=== PATIENT | male | born 1955 | race American Indian/Alaskan Native ===

== ENCOUNTER 2017-07-06 16:34 | Inpatient (IN) ==
[2017-07-06] MEDS ORDERED: 0.9 % SODIUM CHLORIDE 1,000 ML IV ONE (17:07)
--- NOTE | 2017-07-06 17:15 | Emergency Department Note ---
Seizure HPI - General Chief Complaint: Seizure Stated Complaint: Alcohol/ seizures Time Seen by Provider: 07/06/17 16:38 Source: patient, family Mode of arrival: ambulatory Limitations: altered mental status - History of Present Illness HPI Narrative: 62-year-old male presents with his son and daughter in law due to increased confusion. He has recently stopped drinking alcohol and has had some seizures. He was seen at [facility] on 06/28 and worked up and given Keppra. He saw Nicolás Patel on 07/04 and said that he had not been drinking for a couple of days and Nicolás wanted him to return the next day to monitor him for any withdrawal symptoms. At that time he was told to stop taking his Keppra. Family states that he has not been drinking and he seems like he has been up all night and tore his house apart. He is taking everything out of drawers and his other daughter called [facility] to voice her concern. They instructed him to come here. Family states he has had all of his medications out as well as the Keppra so he may have been taking it. He has not been given Ativan. He has a friend that stays with him that keeps an eye on him. He states he has been hammering all day. He has a few fresh bruises one on his right hand and he has an abrasion on his right posterior ribs. He states he fell in the kitchen. He knows that he is in [place] at [facility]. He does not know the date or the year. He does know that his son and his [id number] are with him. He states his hand is hurting because he has been "hammering "all day. Family states that last year he was having seizures after coming off of alcohol and was very confused for a significant amount of time and then got better. He says that he had alcohol today but family states he did not. Yesterday he was confused but not as bad as today. He is alert. He states he is shaky. He is not agitated or shaking at this time. He is asking for water. His last seizure was on the or when he was seen at [facility]. He takes thiamine and blood pressure medications. He is not diabetic. - Related Data Home Medications Medication Instructions Recorded Confirmed Acetaminophen [Non-Aspirin] 650 mg PO Q6HP PRN 07/06/17 07/06/17 Ergocalciferol (Vitamin D2) 50,000 unit PO ONCE 07/06/17 07/06/17 [Vitamin D2] Folic Acid 1 mg PO ONCE 07/06/17 07/06/17 Gabapentin [Neurontin] 600 mg PO HS 07/06/17 07/06/17 Glucosamine Sulfate 1,000 mg PO BID 07/06/17 07/06/17 Hydrochlorothiazide [Oretic] 25 mg PO DAILY 07/06/17 07/06/17 Iron Polysaccharide Complex 150 mg PO ONCE 07/06/17 07/06/17 [Ferric X-150] Lisinopril [Zestril] 10 mg PO ONCE 07/06/17 07/06/17 Methocarbamol [Robaxin] 500 mg PO ONCE 07/06/17 07/06/17 Omeprazole [PriLOSEC] 20 mg PO ONCE 07/06/17 07/06/17 Thiamine [Vitamin B1] 100 mg PO ONCE 07/06/17 07/06/17 levETIRAcetam [Levetiracetam] 500 mg PO BID 07/06/17 07/06/17 Allergies Allergy/AdvReac Type Severity Reaction Status Date / Time Opioids - Morphine Analogues Allergy Unknown Unknown Verified 07/06/17 16:46 Review of Systems All systems ED: reviewed and negative except as stated. Past Medical History - Past Medical History Medical history: Reports: arthritis, hypertension, other (alcoholism) Surgical history ED: Reports: non-contributory Family history: Reports: non-contributory - Social History smoking status: Never smoker Physical Exam Right posterior ribs shows an abrasion measuring 4 x 3 cm. Associated bruising. His right hand shows a bruise measuring 3 cm in diameter with associated swelling. No deformity and he has full range of motion. He has multiple abrasions on his legs. Limitations: no limitations General appearance: alert, in no apparent distress Head: atraumatic Eye: Present: normal appearance, PERRL, EOMI Neck: Present: normal inspection, full ROM. Absent: tenderness, lymphadenopathy Chest: Present: normal inspection, symmetric chest wall rise Respiratory: Present: normal lung sounds bilaterally Cardiovascular: Present: tachycardia, normal heart sounds Abdominal: Present: soft, normal bowel sounds. Absent: tenderness Neurological: Present: alert, CN II-XII intact. Absent: oriented X3 Psychiatric: Present: flat affect Skin: Present: warm, dry Course Course Narrative: Given fluids and a banana bag has been started. Given 0.5 mg of Ativan. He will be admitted for observation. Vital Signs Temperature 97.5 F 07/06/17 16:36 Pulse Rate 112 H 07/06/17 16:36 Respiratory Rate 16 07/06/17 16:36 Blood Pressure 165/112 07/06/17 16:36 Pulse Oximetry (%) 99 07/06/17 16:36 Temperature 97.5 F 07/06/17 20:37 Pulse Rate 98 H 07/06/17 20:37 Respiratory Rate 25 H 07/06/17 20:37 Blood Pressure 163/95 07/06/17 20:37 Pulse Oximetry (%) 100 07/06/17 20:37 Seizure - Lab Data Lab results reviewed: Yes I reviewed the patient's lab results. Result diagrams: 07/06/17 17:00 07/06/17 17:00 Lab Results 07/06/17 07/06/17 07/06/17 Range/Units 17:00 17:00 17:00 WBC 12.5 H (4.5-11.0) K/mcL RBC 4.27 L (4.50-5.90) M/mcL Hgb 13.8 (13.5-16.5) g/dL Hct 40.5 L (41.0-55.0) % MCV 94.8 (80.0-100.0) fL MCH 32.4 (26.0-34.0) pg MCHC 34.2 (31.0-36.0) g/dL RDW 14.7 H (11.5-14.5) % Plt Count 220 (140-440) K/mcL MPV 8.2 (7.4-10.4) fL Total Counted 100 Seg Neutrophils % 78 (38-78) % Band Neutrophils % Not Reportable Lymphocytes % 6 L (15-49) % Monocytes % (Manual) 16 H (1-12) % Platelet Estimate Normal (NORMAL) RBC Morphology Normal (NORMAL) Sodium 148 H (133-145) mmol/L Potassium 3.8 (3.3-5.1) mmol/L Chloride 111 H (96-108) mmol/L Carbon Dioxide 21 L (22-30) mmol/L Anion Gap 16.0 (8-16) BUN 23 (8-23) mg/dl Creatinine 1.0 (0.7-1.2) mg/dl GFR Calculation 80 Glucose 131 H (70-105) mg/dL Calcium 9.1 (8.6-10.4) mg/dl Total Bilirubin 0.6 (0.0-1.0) mg/dL AST 44 H (0-37) U/l ALT 25 (0-40) U/l Alkaline Phosphatase 108 (39-117) U/L Ammonia (16-60) umol/L Total Protein 7.3 (5.9-8.4) gm/dL Albumin 4.4 (3.2-5.2) gm/dL Globulin 2.9 (2.2-3.7) gm/dL Albumin/Globulin Ratio 1.5 (1.0-2.3) Urine Color Urine Appearance Urine pH (5.0-9.0) Ur Specific [place] (1.000-1.035) Urine Protein (NEG) mg/dL Urine Glucose (UA) (NEG) mg/dL Urine Ketones (NEG) mg/dL Urine Occult Blood (<0.03) mg/dL Urine Nitrate (NEG) Urine Bilirubin (NEG) mg/dL Urine Urobilinogen (NEG) mg/dL Ur Leukocyte Esterase (NEG) /uL Urine RBC (0-1) /hpf Urine WBC (0-4) /hpf Ur Squamous Epith Cells (0-4) /hpf Urine Bacteria (0) /hpf Urine Mucus (0) /hpf Ur Culture Indicated? Urine Opiates Screen None detected (NONDETECTED) Ur Oxycodone Screen None detected (NONDETECTED) Urine Methadone Screen None detected (NONDETECTED) Ur Barbiturates Screen None detected (NONDETECTED) Ur Phencyclidine Scrn None detected (NONDETECTED) Ur Amphetamines Screen None detected (NONDETECTED) U Benzodiazepines Scrn None detected (NONDETECTED) Urine Cocaine Screen None detected (NONDETECTED) U Marijuana (THC) Screen Suspect positive A (NONDETECTED) Ethyl Alcohol (<0.010) gm/dl 07/06/17 07/06/17 07/06/17 Range/Units 17:00 17:18 18:22 WBC (4.5-11.0) K/mcL RBC (4.50-5.90) M/mcL Hgb (13.5-16.5) g/dL Hct (41.0-55.0) % MCV (80.0-100.0) fL MCH (26.0-34.0) pg MCHC (31.0-36.0) g/dL RDW (11.5-14.5) % Plt Count (140-440) K/mcL MPV (7.4-10.4) fL Total Counted Seg Neutrophils % (38-78) % Band Neutrophils % Lymphocytes % (15-49) % Monocytes % (Manual) (1-12) % Platelet Estimate (NORMAL) RBC Morphology (NORMAL) Sodium (133-145) mmol/L Potassium (3.3-5.1) mmol/L Chloride (96-108) mmol/L Carbon Dioxide (22-30) mmol/L Anion Gap (8-16) BUN (8-23) mg/dl Creatinine (0.7-1.2) mg/dl GFR Calculation Glucose (70-105) mg/dL Calcium (8.6-10.4) mg/dl Total Bilirubin (0.0-1.0) mg/dL AST (0-37) U/l ALT (0-40) U/l Alkaline Phosphatase (39-117) U/L Ammonia 30 (16-60) umol/L Total Protein (5.9-8.4) gm/dL Albumin (3.2-5.2) gm/dL Globulin (2.2-3.7) gm/dL Albumin/Globulin Ratio (1.0-2.3) Urine Color Yellow Urine Appearance Clear Urine pH 5.0 (5.0-9.0) Ur Specific [place] 1.024 (1.000-1.035) Urine Protein Neg (NEG) mg/dL Urine Glucose (UA) >=500 A (NEG) mg/dL Urine Ketones 5/tr A (NEG) mg/dL Urine Occult Blood Neg (<0.03) mg/dL Urine Nitrate Neg (NEG) Urine Bilirubin Neg (NEG) mg/dL Urine Urobilinogen Neg (NEG) mg/dL Ur Leukocyte Esterase Neg (NEG) /uL Urine RBC 1 (0-1) /hpf Urine WBC 1 (0-4) /hpf Ur Squamous Epith Cells < 1 (0-4) /hpf Urine Bacteria 0 (0) /hpf Urine Mucus Few (0) /hpf Ur Culture Indicated? No Urine Opiates Screen (NONDETECTED) Ur Oxycodone Screen (NONDETECTED) Urine Methadone Screen (NONDETECTED) Ur Barbiturates Screen (NONDETECTED) Ur Phencyclidine Scrn (NONDETECTED) Ur Amphetamines Screen (NONDETECTED) U Benzodiazepines Scrn (NONDETECTED) Urine Cocaine Screen (NONDETECTED) U Marijuana (THC) Screen (NONDETECTED) Ethyl Alcohol < 0.010 (<0.010) gm/dl - Radiology Data Radiology results reviewed: Yes I reviewed the patient's radiology results. Minimal age-related atrophy - otherwise negative. Negative chest x-ray Disposition Pt seen by FO[employer] AND B[employer] SERVICE MANAGER/PA only: Yes Clinical Impression: Alcohol withdrawal delirium Disposition: Xfer As Outpt/Obs ([facility]) Condition: Fair
--- NOTE | 2017-07-06 17:56 | XRay Report ---
CLINICAL INFORMATION: Altered mental status COMPARISON: 10/17/2016 FINDINGS: Heart size, mediastinum and pulmonary vessels are normal. Lungs are clear. No effusions. Bones soft tissues are normal IMPRESSION: Negative Interpreted and Authenticated by: Clyde Higgins 07/06/17
[2017-07-06 17:58] LABS: Mean Cell Volume 94.8 fL (80.0-100.0); Mean Corpuscular HGB Conc 34.2 g/dL (31.0-36.0); Mean Corpuscular Hemoglobin 32.4 pg (26.0-34.0); Platelet Count 220 K/mcL (140-440); RBC 4.27 M/mcL (4.50-5.90); Red Cell Distribution Width 14.7 % (11.5-14.5)
[2017-07-06 18:06] LABS: ALT/SGPT 25 U/l (0-40); Albumin 4.4 gm/dL (3.2-5.2); Albumin/Globulin Ratio 1.5 (1.0-2.3); Alkaline Phosphatase 108 U/L (39-117); Blood Urea Nitrogen 23 mg/dl (8-23)
--- NOTE | 2017-07-06 18:07 | Cat Scan Report ---
CLINICAL INFORMATION: Decreased mental status decreased combination COMPARISON: None. TECHNIQUE: 2.5 mm helical slices were obtained in the skull base to vertex. Following reconstruction, axial reformatted images were reviewed at bone and parenchymal windows. The exam was performed using radiation dose optimization techniques including, but not limited to, automated exposure control, adjustment of the mA and/or kV according to patient size and use of iterative reconstruction technique. FINDINGS: The ventricles, sulci, fissures, and cisterns are normal in size and configuration for age. No extra-axial fluid collections are identified. The cerebrum, brainstem and cerebellum are unremarkable. There is no evidence of hemorrhage, mass effect, or edema. Bone windows show no osseous abnormality. IMPRESSION: Minimal age-related atrophy - otherwise negative. Interpreted and Authenticated by: Clyde Higgins 07/06/17
[2017-07-06 18:41] LABS: Lymphocytes % 6 % (15-49); Monocytes % (Manual) 16 % (1-12); Platelet Estimate NORMAL (NORMAL); RBC Morphology NORMAL (NORMAL); Segmented Neutrophils % 78 % (38-78)
[2017-07-06] MEDS ORDERED: LACTATED RINGERS 1,000 ML IV ONE (18:57)
[2017-07-06] MEDS ORDERED: LORazepam 2 MG/ML VIAL IV ONE (19:04)
[2017-07-06 19:11] LABS: Appearance,Urine CLEAR; Bacteria,Urine 0 /hpf (0); Bilirubin,Urine NEG (NEG); Color,Urine YELLOW; Glucose,Urine (UA) >=500 mg/dL (NEG); Leukocyte Esterase,Urine NEG /uL (NEG); Mucus,Urine FEW /hpf (0); Protein,Urine NEG (NEG); Specific Gravity,Urine 1.024 (1.000-1.035); Urine Blood NEG mg/dL (<0.03); Urine RBC 1 /hpf (0-1); Urine Squamous Epithelial Cell < 1 /hpf (0-4); Urine WBC 1 /hpf (0-4); Urobilinogen,Urine NEG (NEG)
[2017-07-06] MEDS ORDERED: POTASSIUM CHLORIDE 20 MEQ, MAGNESIUM SULFATE 16.24 MEQ, THIAMINE 100 MG, MVI, ADULT NO.... IV SCH ×2 (19:30→19:45)
[2017-07-06 19:48] LABS: Amphetamine Screen,Urine NONE DETECTED (NONDETECTED); Benzodiazepines Screen,Urine NONE DETECTED (NONDETECTED); Cocaine Screen,Urine NONE DETECTED (NONDETECTED); Opiate Screen,Urine NONE DETECTED (NONDETECTED); Oxycodone, Urine Screen NONE DETECTED (NONDETECTED)
[2017-07-06] MEDS ORDERED: POTASSIUM CHLORIDE 20 MEQ, MAGNESIUM SULFATE 16.24 MEQ, THIAMINE 100 MG, MVI, ADULT NO.... IV ONE (19:53)
[2017-07-06] MEDS ORDERED: LISINOPRIL 10 MG TABLET PO SCH (20:53)
[2017-07-06] MEDS ORDERED: cloNIDine HCL 0.1 MG TABLET PO PRN (20:53)
[2017-07-06] MEDS ORDERED: IRON POLYSACCHARIDE COMPLEX 150 MG CAPSULE PO SCH (20:53)
[2017-07-06] MEDS ORDERED: ONDANSETRON 4 MG/2 ML VIAL IV PRN (20:53)
[2017-07-06] MEDS ORDERED: OMEPRAZOLE 20 MG CAPSULE PO SCH (20:53)
--- NOTE | 2017-07-06 20:56 | Internal Med History&Physical ---
Medical - H&P: HPI Patient information: Note initiated : 07/06/17 at 8:48 pm Service Date, if different from initiated Date: [] Patient: Rodney Belcher 62 y/o M admitted on for Alcohol/ seizures. Chief Complaint: [] History of present illness: Mr. Belcher is a 62 year old Male with alcohol use, presents to the emergency room today brought in with family members for evaluation for altered mental status. The patient is not a very reliable history provider however is able to answer some questions. According to him he was brought in here for seizures. He has been having seizures for approximately 2 weeks. The patient notes he was brougth to the hospital for same He note he has been a very heavy user of alcohol, drinks crate after crate of beer, with whiskey shots later, h/o etoh widrawal seizures. he also uses Kratom on a regular basis, which he uses to get a high, On reviewing this substance its a a herb used for chr pain, but also used as a recreational use. The patient also uses THC. The patient at present has no complaints, he is pleasant, but not able to answer questions correctly, Family was present at the bedside in the ER but they stepped out at the time of admission, and have not yet returned. I do have charts from outside faciilty which was reviewed. The patient was admitted to [facility] on 19 June with diagnosis of alcohol withdrawal seizures. The patient was started on Keppra at that point in time. He underwent testing CT head CT spine chest x-ray which is all negative. Urine tox screen was positive for THC, labs showed leukocytosis. He was sent home with follow-up to his PCP as he was coherent and able to hold a meaningful conversation. He was seen by the PCPs office on 04 July advised not to take Keppra, he was also not having any seizures. He was educated to abstain from alcohol, he was prescribed I believe multivitamin thiamine and folic acid at that point in time. According to the note telephonic note from today the PCPs office received a phone from the patient's sister concerned that the patient was acting bizarrely extremely forgetful and not quite right his body was bruised and there was some sores on his tongue. He was not able to recognize his family members. Medications were lying around his house not sure if he was compliant with same. He was therefore asked to go to the emergency room for further evaluation. In the emergency room she was noted to be afebrile, tachycardic heart rate 90 - 110, elevated blood pressure, labs showed mild leukocytosis WBC 12,000 much better than a few days ago. Sodium was elevated at 148, potassium is 3.8, glucose is 138. She was obviously confused. Head CT was negative chest x-ray was negative. Patient was therefore presented for admission for alcohol withdrawal and possible delirium tremors. Cording to the patient his last alcohol drink was yesterday or today he was not sure, he also used this herbal supplement for recreational purposes recently unable to give me a proper timeframe. Side effects of Kratom as per Uptodate : Kratom use can also lead to respiratory depression, anorexia, depression, psychosis, and seizures Review of systems: CONSTITUTIONAL: No weight loss, fever, chills, weakness or fatigue. HEENT: Eyes: No visual loss, blurred vision, double vision or yellow sclerae. Ears, Nose, Throat: No hearing loss, sneezing, congestion, runny nose or sore throat. SKIN: No rash or itching. CARDIOVASCULAR: No chest pain, chest pressure or chest discomfort. No palpitations or edema. RESPIRATORY: No shortness of breath, cough or sputum. GASTROINTESTINAL: No nausea, vomiting or diarrhea or constipation. No abdominal pain or blood in stools No Betty. GENITOURINARY: Denies Burning on urination. Blood in urine, or foul smelling urine NEUROLOGICAL: No headache, dizziness, syncope, paralysis, tremors, numbness or tingling in the extremities. No change in bowel or bladder control. MUSCULOSKELETAL: No muscle, back pain, joint pain or stiffness. HEMATOLOGIC: No bleeding or bruising. No enlarged nodes PSYCHIATRIC: No depression or anxiety. ENDOCRINOLOGIC: No reports of sweating, cold or heat intolerance. No polyuria or polydipsia. ALLERGIES: No hives, eczema or rhinitis. Skin: No rash, no jaundice, cyanosis or pallor. Patient denies any complaint Medical - H&P: PMH Medical history: Glaucoma Hypertension Seizures secondary to substance use versus epilepsy Chronic back pain Multiple fractures Surgical history: None as per chart review Pertinent family history: Mother at age 86, due to her myocardial infarction Social history: Heavy alcohol use, marijuana use, use of kratom, as per chart no history of smoking Medical - H&P: Meds Home Medications Medication Instructions Recorded Confirmed Type Acetaminophen [Non-Aspirin] 650 mg PO Q6HP PRN 07/06/17 07/06/17 History Ergocalciferol (Vitamin D2) 50,000 unit PO ONCE 07/06/17 07/06/17 History [Vitamin D2] Folic Acid 1 mg PO ONCE 07/06/17 07/06/17 History Gabapentin [Neurontin] 600 mg PO HS 07/06/17 07/06/17 History Glucosamine Sulfate 1,000 mg PO BID 07/06/17 07/06/17 History Hydrochlorothiazide [Oretic] 25 mg PO DAILY 07/06/17 07/06/17 History Iron Polysaccharide Complex 150 mg PO ONCE 07/06/17 07/06/17 History [Ferric X-150] Lisinopril [Zestril] 10 mg PO ONCE 07/06/17 07/06/17 History Methocarbamol [Robaxin] 500 mg PO ONCE 07/06/17 07/06/17 History Omeprazole [PriLOSEC] 20 mg PO ONCE 07/06/17 07/06/17 History Thiamine [Vitamin B1] 100 mg PO ONCE 07/06/17 07/06/17 History levETIRAcetam [Levetiracetam] 500 mg PO BID 07/06/17 07/06/17 History Allergies Allergy/AdvReac Type Severity Reaction Status Date / Time Opioids - Morphine Analogues Allergy Unknown Unknown Verified 07/06/17 16:46 Medical - H&P: Exam - Constitutional Vitals: Temp Pulse Resp BP Pulse Ox 97.5 F 98 H 25 H 163/95 100 07/06/17 20:37 07/06/17 20:37 07/06/17 20:37 07/06/17 20:37 07/06/17 20:37 Exam: GENERAL: The patient is a well-developed, well-nourished in no apparent distress. Is alert and oriented x2 (aware of name, date of bright and that we are in [facility]. not sure of month, year or the president. VITAL SIGNS: Reviewed and as noted elsewhere. HEENT: Head is normocephalic and atraumatic. Extraocular muscles are intact. Pupils 2 mm in the right eye reactive to light, 4 mm in the left side status post cataract surgery not reactive to light. Patient denied any visual symptoms. Nares appeared normal. Mouth appears any without lesions. Mucous membranes are dry. There is a tongue bite not actively bleeding NECK: Normal to inspection, Supple, No lymphadenopathy or thyromegaly. LUNGS: Air entry equal on both sides, no wheezing, crackles or rhonchi noted. No accessory muscles of respiration HEART: Regular rate and rhythm normal, S1 and S2 heard, no Gallop, S3 or Rub Noted, No Gross murmur heard. ABDOMEN: Soft, nontender, and nondistended. Positive bowel sounds. No hepatosplenomegaly was noted. EXTREMITIES: No cyanosis, clubbing, rash, lesions or edema. NEUROLOGIC: Cranial nerves II through XII are grossly intact. Motor and Sensory System Grossly Intact PSYCHIATRIC: Pleasant, laughing inappropriately intermittently. Confused. But follows commands SKIN: No ulceration or wounds noted, No jaundice, No rash noted. Bruising noted on his hands and some abrasion on his foot Medical - H&P: Reslt - Labs CBC & Chem 7: 07/06/17 17:00 07/06/17 17:00 Labs: Short CBC 07/06/17 Range/Units 17:00 WBC 12.5 H (4.5-11.0) K/mcL Hgb 13.8 (13.5-16.5) g/dL Hct 40.5 L (41.0-55.0) % Plt Count 220 (140-440) K/mcL BMP 07/06/17 17:00 Sodium 148 H Potassium 3.8 Chloride 111 H Carbon Dioxide 21 L BUN 23 Creatinine 1.0 Glucose 131 H Calcium 9.1 Liver Function 07/06/17 Range/Units 17:00 Total Bilirubin 0.6 (0.0-1.0) mg/dL AST 44 H (0-37) U/l ALT 25 (0-40) U/l Alkaline Phosphatase 108 (39-117) U/L Albumin 4.4 (3.2-5.2) gm/dL Urine 07/06/17 Range/Units 18:22 Urine Color Yellow Urine Appearance Clear Urine pH 5.0 (5.0-9.0) Ur Specific [place] 1.024 (1.000-1.035) Urine Protein Neg (NEG) mg/dL Urine Glucose (UA) >=500 A (NEG) mg/dL Medical - H&P: A/P - Narrative A/P Narrative: A/P Alcohol Withdrawal Delirium Tremors Alcohol withdrawal Seizures Substance abuse/ Kratom Hypertension, uncontrolled Chr pain Glaucoma Plan Admit to tele [facility] protocol, IV ativan as needed per protocol, hold Keppra for now, according to PCPs review. If seizures are related to alcohol withdrawal that they should subside. Patient's going to be on Ativan. Banana bag given in the ED, continue IV thiamine while in the hospital. Continue folic acid and multivitamin Clonidine for very high blood pressure, resume home medications IV dextrose half normal saline with KCl. Trend labs Seizure and fall precautions Resume home medications for glaucoma Try to get some history from family once they come back [ was told them to come back later.] DVT-heparin subcu Regular diet Full code
[2017-07-06] MEDS ORDERED: levETIRAcetam 500 MG TABLET PO SCH (21:00)
[2017-07-06] MEDS ORDERED: LISINOPRIL 10 MG TABLET ONE (21:44)
[2017-07-06] MEDS ORDERED: cloNIDine HCL 0.1 MG TABLET ONE (21:44)
[2017-07-06] MEDS ORDERED: GABAPENTIN 300 MG CAPSULE ONE (21:44)
[2017-07-06] MEDS ORDERED: HEPARIN 5,000 UNIT/ML VIAL ONE (21:45)
[2017-07-06] MEDS: HEPARIN 5,000 UNIT/ML VIAL SQ SCH (21:58)
[2017-07-06] MEDS: GABAPENTIN 300 MG CAPSULE PO SCH (22:00)
[2017-07-06] MEDS: 0.9 % SODIUM CHLORIDE 10 ML SYRINGE IV SCH (22:01)
[2017-07-07] MEDS: DEXTROSE 5%-1/2NS W/20MEQ KCL 1,000 ML IV SCH ×3 (00:15→21:00)
[2017-07-07 05:50] LABS: Basophils # (Auto) 0.1 K/mcL (0.0-0.3); Basophils % (Auto) 0.5 % (0.0-2.0); Eosinophils # (Auto) 0.5 K/mcL (0.0-0.7); Eosinophils % (Auto) 4.1 % (0.0-7.0); Granulocytes % (Auto) 62.9 % (38.0-78.0); Lymphocytes # (Auto) 2.9 K/mcL (1.5-4.8); Mean Cell Volume 95.9 fL (80.0-100.0); Mean Corpuscular HGB Conc 34.1 g/dL (31.0-36.0); Mean Corpuscular Hemoglobin 32.7 pg (26.0-34.0); Monocytes % (Auto) 8.5 % (1.0-12.0); Platelet Count 195 K/mcL (140-440); RBC 3.54 M/mcL (4.50-5.90); Red Cell Distribution Width 14.8 % (11.5-14.5)
[2017-07-07 06:11] LABS: ALT/SGPT 20 U/l (0-40); Albumin 3.2 gm/dL (3.2-5.2); Albumin/Globulin Ratio 1.4 (1.0-2.3); Alkaline Phosphatase 82 U/L (39-117); Bilirubin,Direct < 0.2 mg/dL (0.0-0.3); Blood Urea Nitrogen 11 mg/dl (8-23); Gamma Glutamyl Transpeptidase 305 U/L (8-61); Uric Acid 4.2 mg/dL (2.5-8.0)
[2017-07-07] MEDS: 0.9 % SODIUM CHLORIDE 10 ML SYRINGE IV SCH ×3 (06:36→21:08)
[2017-07-07] MEDS: HEPARIN 5,000 UNIT/ML VIAL SQ SCH ×2 (08:58→21:07)
[2017-07-07] MEDS: THIAMINE 100 MG in 0.9 % SODIUM CHLORIDE 50 ML IV SCH (08:58)
[2017-07-07] MEDS: FOLIC ACID 1 MG TABLET PO SCH (08:59)
[2017-07-07] MEDS: HYDROCHLOROTHIAZIDE 25 MG TABLET PO SCH (08:59)
[2017-07-07] MEDS: LISINOPRIL 10 MG TABLET PO SCH (08:59)
[2017-07-07] MEDS: IRON POLYSACCHARIDE COMPLEX 150 MG CAPSULE PO SCH (08:59)
[2017-07-07] MEDS: MULTIVIT,THER IRON,CA,FA & MIN 1 TABLET PO SCH (08:59)
[2017-07-07] MEDS: OMEPRAZOLE 20 MG CAPSULE PO SCH (09:03)
--- NOTE | 2017-07-07 09:33 | Internal Med Progress Note ---
Medical - PN: Subj Patient information: Note initiated : 07/07/17 at 9:31 am Service Date, if different from initiated Date: [] Patient: Rodney Belcher 62 y/o M admitted on 07/06/17 for Alcohol/ seizures. Chief Complaint: [] Interval history: Mr. Belcher is a 62 year old Male with alcohol use, presents to the emergency room today brought in with family members for evaluation for altered mental status. The patient is not a very reliable history provider however is able to answer some questions. According to him he was brought in here for seizures. He has been having seizures for approximately 2 weeks. The patient notes he was brougth to the hospital for same He note he has been a very heavy user of alcohol, drinks crate after crate of beer, with whiskey shots later, h/o etoh widrawal seizures. he also uses Kratom on a regular basis, which he uses to get a high, On reviewing this substance its a a herb used for chr pain, but also used as a recreational use. The patient also uses THC. The patient at present has no complaints, he is pleasant, but not able to answer questions correctly, Family was present at the bedside in the ER but they stepped out at the time of admission, and have not yet returned. I do have charts from outside faciilty which was reviewed. The patient was admitted to [facility] on 19 June with diagnosis of alcohol withdrawal seizures. The patient was started on Keppra at that point in time. He underwent testing CT head CT spine chest x-ray which is all negative. Urine tox screen was positive for THC, labs showed leukocytosis. He was sent home with follow-up to his PCP as he was coherent and able to hold a meaningful conversation. He was seen by the PCPs office on 04 July advised not to take Keppra, he was also not having any seizures. He was educated to abstain from alcohol, he was prescribed I believe multivitamin thiamine and folic acid at that point in time. According to the note telephonic note from today the PCPs office received a phone from the patient's sister concerned that the patient was acting bizarrely extremely forgetful and not quite right his body was bruised and there was some sores on his tongue. He was not able to recognize his family members. Medications were lying around his house not sure if he was compliant with same. He was therefore asked to go to the emergency room for further evaluation. In the emergency room she was noted to be afebrile, tachycardic heart rate 90 - 110, elevated blood pressure, labs showed mild leukocytosis WBC 12,000 much better than a few days ago. Sodium was elevated at 148, potassium is 3.8, glucose is 138. She was obviously confused. Head CT was negative chest x-ray was negative. Patient was therefore presented for admission for alcohol withdrawal and possible delirium tremors. Cording to the patient his last alcohol drink was yesterday or today he was not sure, he also used this herbal supplement for recreational purposes recently unable to give me a proper timeframe. Side effects of Kratom as per Uptodate : Kratom use can also lead to respiratory depression, anorexia, depression, psychosis, and seizures 07/07 Patient seen and examined, no acute overnight events, patient blood pressure was high yesterday but is much better controlled today. Heart rate now much better controlled. Drops down when he is sleeping. We will discontinue clonidine and use hydralazine as needed for blood pressure. Patient was sitting in his bed comfortable had no complaints. Was able to provide a much better history today noting that he was drinking a case of beer on a daily basis, sometimes whiskey shots along with them. Using kratom 1 large spoon every 2 hours. His last alcoholic drink was yesterday. I believe it was a short of whiskey the patient is still not back to baseline still has some tangential thoughts. No seizures overnight Pertinent ROS: Denies headache, dizziness Denies chest pain, palpitations Denies cough or shortness of breath Denies abdominal pain, nausea or vomiting. - Constitutional Vitals: Vital Signs Temp Pulse Resp BP Pulse Ox 97.8 F 76 16 134/95 98 07/07/17 08:15 07/07/17 08:15 07/07/17 08:15 07/07/17 08:15 07/07/17 08:15 Period Temp Pulse Resp BP Sys/Shoemaker Pulse Ox Last 24 Hr 97.5 F-98.8 F 48-114 16-25 109-181/71-122 97-100 Intake and Output 07/06/17 07/07/17 07/07/17 21:59 05:59 13:59 Intake Total 2125 / 2125 1200 / 1200 1000 / 1000 Output Total 1000 / 1000 1100 / 1100 Balance 1125 / 1125 100 / 100 1000 / 1000 Weight 152 lb 12.8 oz Intake & Output: Intake & Output 07/06/17 07/07/17 07/07/17 21:59 05:59 13:59 Intake Total 5 / 5 1200 / 1200 1000 / 1000 Output Total 1000 / 1000 1100 / 1100 Balance 1125 / 1125 100 / 100 1000 / 1000 Weight 152 lb 12.8 oz Intake: IV 5 / 2125 900 / 900 1000 / 1000 Sodium Chloride 0.9% 1,000 ml @ 1000 / 1000 Wide Open IV BOLUS ONE Rx#: [id number] Dextrose 5%-1/2Ns W/20Meq KCl 1 1000 / 1000 ,000 ml @ 100 mls/hr IV .Q10H VITALIY Rx#:[id number] Lactated Ringers 1,000 ml @ 1000 / 1000 Wide Open IV BOLUS ONE Rx#: [id number] Potassium Chloride 20 Meq 125 / 125 900 / 900 Magnesium Sulfate 16.24 Meq Vitamin B1 100 mg Infuvite Adult 10 ml In Dextrose 5%-1/ 2Ns W/20Meq KCl 1,000 ml @ 250 mls/hr IV .Q4H6M ONE Rx#: [id number] Oral 300 / 300 Output: Void Amount 1000 / 1000 1100 / 1100 Other: Meal snack Percent of Meal Consumed 100% Feeding Ability Assist with Tray Set Up # Bowel Movements 0 Exam: Constitutional; Afebrile, cooperative, alert, not in distress. Eyes- No icterus, , No periorbital swelling Ears- Ext ear normal, hearing normal to conversation. Neck- Midline trachea, supple Respiratory system: Air Entry equal on both sides, No crackles or wheezing, no rhonchi. CVS- Rate rhythm regular, S1,S2 heard, no gallop, no rub. 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 Medical - PN: Obj Da - Labs CBC & Chem 7: 07/07/17 03:40 07/07/17 03:40 Labs: Abnormal Lab Results 07/07/17 07/07/17 07/06/17 03:40 03:40 18:22 WBC 11.9 H RBC 3.54 L Hgb 11.6 L Hct 33.9 L RDW 14.8 H Stafford # (Auto) 1.0 H Lymphocytes % Monocytes % (Manual) Sodium Chloride 110 H Carbon Dioxide 21 L Glucose 108 H Calcium 7.8 L GGT 305 H AST Total Protein 5.5 L Urine Glucose (UA) >=500 A Urine Ketones 5/tr A U Marijuana (THC) Screen 07/06/17 07/06/17 07/06/17 17:00 17:00 17:00 WBC 12.5 H RBC 4.27 L Hgb Hct 40.5 L RDW 14.7 H Stafford # (Auto) Lymphocytes % 6 L Monocytes % (Manual) 16 H Sodium 148 H Chloride 111 H Carbon Dioxide 21 L Glucose 131 H Calcium GGT AST 44 H Total Protein Urine Glucose (UA) Urine Ketones U Marijuana (THC) Screen Suspect positive A Meds: Medications Clonidine HCl (Catapres) 0.1 mg PO Q2HP PRN PRN Reason: Hypertension Last Admin: 07/07/17 00:21 Dose: 0.1 mg Folic Acid (Folic Acid) 1 mg PO DAILY [facility] Last Admin: 07/07/17 08:59 Dose: 1 mg Gabapentin (Neurontin) 600 mg PO HS [facility] Last Admin: 07/06/17 22:00 Dose: Not Given Heparin Sodium (Porcine) (Heparin) 5,000 unit SQ Q12 [facility] Last Admin: 07/07/17 08:58 Dose: 5,000 unit Hydrochlorothiazide (Oretic) 25 mg PO DAILY [facility] Last Admin: 07/07/17 08:59 Dose: 25 mg Thiamine HCl 100 mg/ Sodium (Chloride) 51 mls @ 50 mls/hr IV DAILY [facility] Last Admin: 07/07/17 08:58 Dose: 50 mls/hr Potassium Chloride/Dextrose/Sod Cl (Dextrose 5%-1/2ns W/20meq Kcl) 1,000 mls @ 100 mls/hr IV .Q10H [facility] Stop: 07/08/17 12:52 Last Admin: 07/07/17 08:59 Dose: 100 mls/hr Iron Carb/Multivit/Certified Mortician/Folic Acid (Multivitamin W/Minerals) 1 tab PO DAILY [facility] Last Admin: 07/07/17 08:59 Dose: 1 tab Lisinopril (Zestril) 10 mg PO DAILY [facility] Last Admin: 07/07/17 08:59 Dose: 10 mg Lorazepam (Ativan) 0 mg IV Q4HP PRN; Protocol PRN Reason: Alcohol Withdrawal Omeprazole (Prilosec) 20 mg PO ACB [facility] Last Admin: 07/07/17 09:03 Dose: 20 mg Ondansetron HCl (Zofran) 4 mg IV Q4HP PRN PRN Reason: Nausea And Vomiting Polysaccharide Iron Complex (Ferrex 150) 150 mg PO DAILY [facility] Last Admin: 07/07/17 08:59 Dose: 150 mg Sodium Chloride (Saline Flush) 10 ml IV Q8 [facility] Last Admin: 07/07/17 06:36 Dose: Not Given Medical - PN: A/P - Time Spent With Patient Total time spent is greater than 50% in coordination of care (as documented) at patient's floor/unit and/or counseling patient: - Narrative A/P Narrative: A/P Alcohol Withdrawal/ Delirium Tremors: CIWA scores low now, pt doing better, Continue to monitor closely, continue thiamine multivitamin and folic acid. Continue hydration Alcohol withdrawal Seizures: Seizures could also be related to use of kratom which can induce seizures if used in high doses. Seizure precautions, Ativan as needed. She does not have history of epilepsy and therefore will avoid using anti-antiepileptic medication at this point. Substance abuse/ Kratom : Educated at length need for cessation, patient notes that he has grown up since the age of 12 using substances. Was inquiring with regards to use of other substances like marijuana opiates meth or cocaine if that were okay. Educated that none of the substances are acceptable. It seems that the patient will still continue to use marijuana to get his daily high. Hypertension, uncontrolled: Resume hydrochlorothiazide and lisinopril, discontinue clonidine. Low blood heart rate during sleep likely physiological monitor. DVT-heparin subcu Regular diet Full code If remains stable will xfer to med surg status today Medical - PN: Qual - VTE Deep Vein Thrombosis/Pulmonary Embolism Present on Admission: No
[2017-07-07] MEDS ORDERED: hydrALAZINE 20 MG/ML VIAL IV PRN (17:44)
[2017-07-07] MEDS ORDERED: ACETAMINOPHEN 325 MG TABLET PO PRN (17:45)
[2017-07-07] MEDS: LORazepam 2 MG/ML VIAL IV PRN ×2 (18:59→22:12)
[2017-07-07] MEDS: GABAPENTIN 300 MG CAPSULE PO SCH (21:08)
[2017-07-08 04:40] LABS: Basophils # (Auto) 0 K/mcL (0.0-0.3); Basophils % (Auto) 0.4 % (0.0-2.0); Eosinophils # (Auto) 0.4 K/mcL (0.0-0.7); Eosinophils % (Auto) 3.5 % (0.0-7.0); Granulocytes % (Auto) 60.8 % (38.0-78.0); Lymphocytes # (Auto) 2.8 K/mcL (1.5-4.8); Lymphocytes % (Auto) 27.7 % (15.5-49.0); Mean Cell Volume 95.8 fL (80.0-100.0); Mean Corpuscular Hemoglobin 32.6 pg (26.0-34.0); Monocytes # (Auto) 0.8 K/mcL (0.1-0.9); Monocytes % (Auto) 7.6 % (1.0-12.0); Platelet Count 217 K/mcL (140-440); RBC 3.92 M/mcL (4.50-5.90); Red Cell Distribution Width 14.7 % (11.5-14.5)
[2017-07-08 05:30] LABS: ALT/SGPT 22 U/l (0-40); Albumin 3.6 gm/dL (3.2-5.2); Albumin/Globulin Ratio 1.6 (1.0-2.3); Alkaline Phosphatase 94 U/L (39-117); Bilirubin,Direct < 0.2 mg/dL (0.0-0.3); Blood Urea Nitrogen 8 mg/dl (8-23); Gamma Glutamyl Transpeptidase 319 U/L (8-61); Uric Acid 3.5 mg/dL (2.5-8.0)
[2017-07-08] MEDS: 0.9 % SODIUM CHLORIDE 10 ML SYRINGE IV SCH (06:03)
[2017-07-08] MEDS: OMEPRAZOLE 20 MG CAPSULE PO SCH (07:29)
[2017-07-08] MEDS: DEXTROSE 5%-1/2NS W/20MEQ KCL 1,000 ML IV SCH (07:30)
[2017-07-08] MEDS: HYDROCHLOROTHIAZIDE 25 MG TABLET PO SCH (08:27)
[2017-07-08] MEDS: HEPARIN 5,000 UNIT/ML VIAL SQ SCH (08:31)
[2017-07-08] MEDS: LISINOPRIL 10 MG TABLET PO SCH (08:31)
[2017-07-08] MEDS: MULTIVIT,THER IRON,CA,FA & MIN 1 TABLET PO SCH (08:31)
[2017-07-08] MEDS: FOLIC ACID 1 MG TABLET PO SCH (08:32)
[2017-07-08] MEDS: THIAMINE 100 MG in 0.9 % SODIUM CHLORIDE 50 ML IV SCH (08:32)
[2017-07-08] MEDS: IRON POLYSACCHARIDE COMPLEX 150 MG CAPSULE PO SCH (08:32)
--- NOTE | 2017-07-08 09:44 | Discharge Summary ---
Medical - DS: Prov Patient information: Note initiated : 07/08/17 at 9:42 am Service Date, if different from initiated Date: [] Patient: Rodney Belcher 62 y/o M admitted on 07/06/17 for Alcohol/ seizures. Chief Complaint: [] Date of admission: 07/06/17 20:29 Discharge date: 07/08/17 Primary care physician: Jesus Livingston Admitting clinician: Rosio Hurd Consults: 07/06/17 19:31 Consult to Physician [CONS] Stat Comment: Consulting Provider: Rosio Hurd Reason For Exam: Physician to Consult Discharging clinician: Rosio Hurd Medical - DS: Meds - Discharge Medications Prescriptions: LORazepam [Ativan] 1 mg PO Q4HP PRN #20 tab PRN Reason: anxiety/ Alcohol withdrawal. Active and Home Medications: Home Medications Acetaminophen [Non-Aspirin] 650 mg PO Q6HP PRN 07/06/17 [History Confirmed 07/07 Last Taken Unknown] Ergocalciferol (Vitamin D2) [Vitamin D2] 50,000 unit PO WEEKLY 07/06/17 [ History Confirmed 07/07/17 Last Taken Unknown] Folic Acid 1 mg PO DAILY 07/06/17 [History Confirmed 07/07/17 Last Taken Unknown ] Gabapentin [Neurontin] 600 mg PO HS 07/06/17 [History Confirmed 07/07/17 Last Taken Unknown] Glucosamine Sulfate 1,000 mg PO BID 07/06/17 [History Confirmed 07/07/17 Last Taken Unknown] Hydrochlorothiazide [Oretic] 25 mg PO DAILY 07/06/17 [History Confirmed Last Taken Unknown] Iron Polysaccharide Complex [Ferric X-150] 150 mg PO DAILY 07/06/17 [History Confirmed 07/07/17 Last Taken Unknown] Lisinopril [Zestril] 10 mg PO DAILY 07/06/17 [History Confirmed 07/07/17 Last Taken Unknown] Methocarbamol [Robaxin] 500 mg PO HS PRN 07/06/17 [History Confirmed 07/07/17 Last Taken Unknown] Omeprazole [PriLOSEC] 20 mg PO DAILY 07/06/17 [History Confirmed 07/07/17 Last Taken Unknown] Thiamine [Vitamin B1] 100 mg PO DAILY 07/06/17 [History Confirmed 07/07/17 Last Taken Unknown] levETIRAcetam [Levetiracetam] 500 mg PO BID 07/06/17 [History Confirmed Last Taken Unknown] Calcium Carbonate [Calcium] 500 mg PO PRN PRN 07/07/17 [History Confirmed Last Taken Unknown] Roqhz-Evxbkei-Xsrcspjc Tablet 1 tab PO DAILY 07/07/17 [History Confirmed Last Taken Unknown] Medical - DS: Hosp Hospital course: Mr. Belcher is a 62 year old Male with alcohol use, presented to the emergency room for evaluation for altered mental status. The patient is not a very reliable history provider however is able to answer some questions. According to him he was brought in here for seizures. He has been having seizures for approximately 2 weeks. The patient notes he was brought to the hospital for same He note he has been a very heavy user of alcohol, drinks crate after crate of beer, with whiskey shots later, h/o etoh withdrawal seizures. he also uses Kratom on a regular basis, which he uses to get a high, On reviewing this substance its a a herb used for chr pain, but also used as a recreational use. The patient also uses THC. The patient was admitted to [facility] on 19 June with diagnosis of alcohol withdrawal seizures. The patient was started on Keppra at that point in time. He underwent testing CT head CT spine chest x-ray which is all negative. Urine tox screen was positive for THC, labs showed leukocytosis. He was sent home with follow-up to his PCP as he was coherent and able to hold a meaningful conversation. He was seen by the PCPs office on 04 July advised not to take Keppra, he was also not having any seizures. He was educated to abstain from alcohol, he was prescribed I believe multivitamin thiamine and folic acid at that point in time. According to the note telephonic note from the PCPs office received a phone from the patient's sister concerned that the patient was acting bizarrely extremely forgetful and not quite right his body was bruised and there was some sores on his tongue. He was not able to recognize his family members. Medications were lying around his house not sure if he was compliant with same. He was therefore asked to go to the emergency room for further evaluation. In the emergency room she was noted to be afebrile, tachycardic heart rate 90 - 110, elevated blood pressure, labs showed mild leukocytosis WBC 12,000 much better than a few days ago. Sodium was elevated at 148, potassium is 3.8, glucose is 138. She was obviously confused. Head CT was negative chest x-ray was negative. Patient was therefore presented for admission for alcohol withdrawal and possible delirium tremors. The patient was admitted to the hospital for further management. Alcohol Withdrawal/ Delirium Tremors: CIWA scores low now, overnight had some confusion however responded well to Ativan. The patient did not go into florid DTs while in the hospital. He is already on thiamine multivitamin and folic acid as an outpatient. Today this morning he was sitting comfortably in the bed reading a newspaper. He was alert oriented 4. He still has intermittent anxiety secondary to alcohol withdrawal and this can be managed as an outpatient with p.o. Ativan. Alcohol withdrawal Seizures vs related to Kratom over use. She does not have history of epilepsy for the seizures are related to patient's substance use. At this point in time the patient's primary care provider has advised against using Keppra. I do not feel that the patient needs to be on Keppra at this point in time. Educated strongly and at length the need for abstinence from alcohol as well as create them as both of them could potentially be responsible for his seizures Substance abuse/ Kratom : Patient was educated at length with regards to cessation of substance abuse however given his strong history of substance use since a teenager I seriously doubt if he will be able to stay off recreational drugs. The rest of the stay in the hospital was uneventful, patient did have high blood pressure on presentation which responded well to oral medications. At the time of discharge patient is hemodynamically stable tolerating p.o. diet well is alert oriented 4. He will be discharged home with p.o. Ativan and follow-up with PCP Discharge diagnosis: Seizures, Substance abuse, Etoh Withdrawal - Time Spent with Patient Total time spent providing and/or coordinating discharge services: Greater than 30 minutes Medical - DS: Exam - Constitutional Vitals: Vital Signs Temp Pulse Pulse Resp BP BP Pulse Ox 07/08/17 08:04 139/98 07/08/17 08:00 97.9 F 88 20 139/98 98 07/08/17 07:05 79 16 98 07/08/17 06:30 78 07/08/17 04:34 98.3 F 69 16 148/93 99 07/08/17 00:48 97.9 F 95 H 20 141/90 100 07/07/17 19:30 99 F 14 143/87 99 07/07/17 19:19 100 H 98 07/07/17 19:02 143/87 07/07/17 16:00 98.6 F 16 123/86 98 07/07/17 15:47 123/80 07/07/17 14:44 102 H 07/07/17 13:54 121 H 07/07/17 11:52 98.5 F 16 146/92 99 07/07/17 11:43 77 146/92 98 07/07/17 10:00 86 Intake and Output 07/07/17 07/08/17 07/08/17 21:59 05:59 13:59 Intake Total 1240 / 1240 100 / 100 1200 / 1200 Output Total 2750 / 2750 1300 / 1300 875 / 875 Balance -1510 / -1510 -1200 / -1200 325 / 325 Intake: IV 1000 / 1000 1000 / 1000 Dextrose 5%-1/2Ns W/20Meq KCl 1 1000 / 1000 1000 / 1000 ,000 ml @ 100 mls/hr IV .Q10H VITALIY Rx#:[id number] Oral 240 / 240 100 / 100 200 / 200 Output: Void Amount 2750 / 2750 1300 / 1300 875 / 875 Other: Meal snack Breakfast Percent of Meal Consumed 100% 100% Feeding Ability Assist with Tray Set Up Independent # Voids 1 1 Weight 155 lb 9.6 oz Additional comments: Constitutional; Afebrile, cooperative, alert, not in distress. Eyes- No icterus, , No periorbital swelling Ears- Ext ear normal, hearing normal to conversation. Neck- Midline trachea, supple Respiratory system: Air Entry equal on both sides, No crackles or wheezing, no rhonchi. CVS- Rate rhythm regular, S1,S2 heard, no gallop, no rub. 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 Medical - DS: Data Labs on day of discharge: Labs from last 24 hours 07/08/17 07/08/17 03:50 03:50 WBC 10.2 RBC 3.92 L Hgb 12.8 L Hct 37.6 L MCV 95.8 MCH 32.6 MCHC 34.0 RDW 14.7 H Plt Count 217 MPV 8.1 Gran % 60.8 Lymph % (Auto) 27.7 Traill % (Auto) 7.6 Eos % (Auto) 3.5 Baso % (Auto) 0.4 Gran # 6.2 Lymph # (Auto) 2.8 Traill # (Auto) 0.8 Eos # (Auto) 0.4 Baso # (Auto) 0 Sodium 141 Potassium 3.8 Chloride 104 Carbon Dioxide 24 Anion Gap 13.0 BUN 8 Creatinine 0.7 GFR Calculation 100 Glucose 108 H Uric Acid 3.5 Calcium 8.4 L Phosphorus 2.8 Magnesium 2.0 Total Bilirubin 0.4 Direct Bilirubin < 0.2 GGT 319 H AST 29 ALT 22 Alkaline Phosphatase 94 Lactate Dehydrogenase 199 Total Protein 5.8 L Albumin 3.6 Globulin 2.2 Albumin/Globulin Ratio 1.6 Triglycerides 47 Medical - DS: A/P - Patient/Caregiver Discharge Instructions Activity: increase activity as tolerated Diet: Regular Diet Additional Instructions: Your admitted to the hospital for altered mental status acute secondary to a seizure. Please do not drink alcohol or use any other recreational substance. This is responsible for your seizures. Please continue take thiamine multivitamin and folic acid as prescribed by primary care provider. I have made no changes in your chronic home medication list. Your doctor had advised her to not use Keppra so please do not use Keppra. I am sending you home with a prescription for Ativan. This is an antianxiety medication that should help you deal with withdrawal symptoms should you develop some over the next few days. If you have recurrent seizures, fever chest pain shortness of breath or any other acute concerns please do not hesitate to go back to the emergency room - Follow up Plan Follow up with: Jesus Livingston MD [Primary Care Provider] - Disposition: Home, Self-Care Prognosis: Fair Rehab Potential: Fair I certify that the patient requires SNF services: No Overall status at discharge: patient is progressing back to baseline Medical - DS: Qual - VTE Deep Vein Thrombosis/Pulmonary Embolism Present on Admission: No
== END 2017-07-08 12:35 | disposition home or self-care (01) | DRG 897 ==
LOC: ED 16:34 → ICU 20:29
PROVIDERS: ADMIT Internal Medicine; ATTEND Internal Medicine